=== PATIENT | female | born 1985 | race Caucasian/White ===

== ENCOUNTER → 2017-02-08 14:47 | Observation (INO) ==
[2017-02-08 14:06] LABS: Bilirubin,Urine Negative (Negative); Blood,Urine Negative (Negative); Clarity,Urine Cloudy (Clear); Color,Urine Yellow (Yellow); Glucose,Urine (UA) Normal (Normal); Ketones,Urine Negative (Negative); Leukocyte Esterase,Urine Small (Negative); Nitrite,Urine Positive (Negative); PH,Urine 6.5 pH Units (5.0-8.0); Protein,Urine Negative (Neg-Trace); Specific Gravity,Urine 1.013 (1.010-1.025); Urobilinogen,Urine Normal (Normal)
[2017-02-08 14:07] LABS: Bacteria,Urine Many per hpf (None-Few); Hyaline Casts,Urine None Seen per lpf (None-Few); Squamous Epithelial Cell,Urine Many per lpf (None-Few); WBC,Urine 15-30 per hpf (0-3)
--- NOTE | 2017-02-08 23:26 | OB/GYN Progress Note ---
Date of Encounter: 02/08/17 Time of Encounter: 14:30 - Assessment and Plan (1) UTI (urinary tract infection) Status: Acute Patient was seen and evaluated by RN. UA showing nitrites and treated with Macrobid for 7 days pending culture. Qualifiers: Urinary tract infection type: acute cystitis Hematuria presence: without hematuria Qualified Code(s): N30.00 - Acute cystitis without hematuria (2) Status: Chronic Qualifiers: Weeks of gestation: unspecified Qualified Code(s): Z33.1 - state, incidental Objective - Vital Signs Vital Signs: Intake and Output 02/08/17 02/08/17 02/08/17 07:59 15:59 23:59 Other: Weight 67 kg Patient Weight 02/08/17 23:59 Weight 67 kg - Labs Labs: Abnormal lab results Urine Clarity Cloudy (Clear) A 02/08/17 13:54 Urine Nitrite Positive (Negative) A 02/08/17 13:54 Ur Leukocyte Esterase Small (Negative) H 02/08/17 13:54 Urine Microscopic RBC 5-15 per hpf (0-3) H 02/08/17 13:54 Urine Microscopic WBC 15-30 per hpf (0-3) H 02/08/17 13:54 Ur Squamous Epith Cells Many per lpf (None-Few) H 02/08/17 13:54 Urine Bacteria Many per hpf (None-Few) H 02/08/17 13:54 Ur Culture Indicated? YES (NO) A 02/08/17 13:54
--- NOTE | 2017-02-12 09:38 | Event Note ---
Date of Encounter: 02/12/17 Time of Encounter: 09:32 Culture returned positive. Resistant to macrobid which she was sent home on. Not a patient of [place]. Unable to notify Dr Garcia of [facility] due to busy signal on the phone during multiple attempts. Left message on patient's phone to return call.
== END | disposition home or self-care (01) ==
LOC: 1NENULAB
PROVIDERS: ADMIT Obstetrics & Gynecology; ATTEND Obstetrics & Gynecology